=== PATIENT | male | born 1965 | race Caucasian/White ===

== ENCOUNTER 2022-04-13 06:24 | Day surgery (SDC) | payer BC ==
[~2022-04-13] VITALS: Ht 188 cm; Wt 102.8 kg
[2022-04-13] MEDS ORDERED: ASTELIN NASAL S34 ML NS (06:58)
[2022-04-13] MEDS ORDERED: 00186-0370-20 IH (06:58)
[2022-04-13] MEDS ORDERED: PRISTIQ25 MG PO (06:59)
[2022-04-13 07:34] VITALS: BP 131/95; PULSE 77; TEMP 96.8
[2022-04-13 08:35] VITALS: BP 127/98; PULSE 68; TEMP 96.8
[2022-04-13 08:50] VITALS: BP 137/97; PULSE 64
[2022-04-13 09:05] VITALS: BP 141/93; PULSE 64
--- NOTE | 2022-04-13 09:15 | NUR ---
0835 RETURNS TO ROOM 3 PER CART. AWAKE, ALERT. AMBULATES TO RECLINER WITH STANDBY ASSIST. RESP UNLABORED. DENIES NAUSEA, ABD PAIN OR DYSPHAGIA. VITAL SIGNS OBTAINED. CALL LIGHT AT SIDE. HERE 0845 DR. MAN HERE TO VISIT WITH PATIENT. EDUCATES PATIENT ON HIGH BLOOD PRESSURE 0855 TOLERATES PO JUICE AND MUFFIN WITHOUT NAUSEA. SWALLOWS WITHOUT DIFFICULTY 0900 DISCHARGE INSTRUCTIONS REVIEWED. PATIENT VERBALIZES UNDERSTANDING. COPY PROVIDED IN DISCHARGE FOLDER. 0910 DRESSES SELF
== END 2022-04-13 09:16 | disposition home or self-care (01) ==
LOC: SDCO 06:24 → EDBD 06:24 → SDCO 07:30
DX: Z12.11 Encounter for screening for malignant neoplasm of colon (principal); D12.8 Benign neoplasm of rectum; K44.9 Diaphragmatic hernia without obstruction or gangrene; K29.70 Gastritis, unspecified, without bleeding; Z98.84 Bariatric surgery status
CPT/HCPCS: J2704; J7120